=== PATIENT | male | born 1990 | race Caucasian/White ===

== ENCOUNTER → 2021-05-19 16:51 | Outpatient (BNVA) | payer BC, SELFPAY | PROVIDERS: Family Provider Family Medicine; PCP Nurse Practitioner Family; Visit Provider Nurse Practitioner Family | DX: E55.9 Vitamin D deficiency, unspecified (principal); Z79.899 Other long term (current) drug therapy; N41.9 Inflammatory disease of prostate, unspecified; Z13.6 Encounter for screening for cardiovascular disorders | CPT/HCPCS: 36415; 80053; 80061; 81003; 82306; 83036; 84153; 84439; 84443; 85025; 87086 ==

== ENCOUNTER → 2022-07-03 10:42 | Outpatient (BNVA) | payer OTHER, SELFPAY | PROVIDERS: Family Provider Family Medicine; PCP Family Medicine; Visit Provider Nurse Practitioner Family | DX: J02.9 Acute pharyngitis, unspecified (principal) | CPT/HCPCS: 87071; 87880 ==